=== PATIENT | female | born 1985 | race Caucasian/White ===

== ENCOUNTER 2017-11-08 05:17 | Inpatient (IN) | payer OTHER ==
[~2017-11-08] VITALS: Ht 149.9 cm; Wt 73.9 kg
[2017-11-08 07:41] VITALS: BP 120/74
[2017-11-08] MEDS ORDERED: RINGERS SOLUTION,LACTATED 1,000 ML IV ONE (08:31)
[2017-11-08] MEDS ORDERED: METOCLOPRAMIDE HCL 5 MG/ML 2 ML VIAL IVP ONE (08:45)
[2017-11-08] MEDS ORDERED: CITRIC ACID/SODIUM CITRATE 30 ML SOLUTION UDCUP PO ONE (08:45)
[2017-11-08 09:04] LABS: BASOPHILS % (AUTO) 0.9 % (0.0-2.0); EOSINOPHILS % (AUTO) 0.4 % (1.0-6.0); HEMATOCRIT 39.3 % (36-46); HEMOGLOBIN 13.8 g/dL (12.0-16.0); LYMPHOCYTES # (AUTO) 1.9 K/uL (1.0-4.8); LYMPHOCYTES % (AUTO) 17.1 % (22.0-44.0); MEAN CORPUSCULAR HEMOGLOBIN 31.3 pg (26.0-34.0); MEAN CORPUSCULAR HGB CONC 35.1 G/dL (31.0-37.0); MEAN CORPUSCULAR VOLUME 89 fL (80-100); MONOCYTES # (AUTO) 0.8 K/uL (0.1-1.0); MONOCYTES % (AUTO) 7.2 % (2.0-9.0); NEUTROPHILS # (AUTO) 8.3 K/uL (1.8-7.7); NEUTROPHILS % (AUTO) 74.4 % (40.0-70.0); PLATELET COUNT (AUTO)-OB 189 K/uL (150-450); RED BLOOD CELL COUNT(AUTO) 4.41 MIL/uL (4.00-5.20); RED CELL DISTRIBUTION WIDTH 13.9 % (11.5-14.5)
[2017-11-08] MEDS ORDERED: MEPERIDINE-PF 25 MG/ML SYRINGE IVP PRN (10:15)
[2017-11-08] MEDS ORDERED: MORPHINE SULFATE 10 MG/ML SYRINGE IVP PRN ×2 (10:15)
[2017-11-08] MEDS ORDERED: ONDANSETRON HCL 4 MG/2 ML VIAL IVP PRN ×2 (10:15)
[2017-11-08] MEDS ORDERED: FentaNYL CITRATE-PF 100 MCG/2 ML VIAL IVP PRN ×2 (10:15)
[2017-11-08] MEDS ORDERED: NALOXONE HCL 0.4 MG/ML VIAL IVP PRN (10:15)
[2017-11-08] MEDS ORDERED: NALBUPHINE HCL 10 MG/ML VIAL IVP PRN ×3 (10:15)
[2017-11-08] MEDS ORDERED: ACETAMINOPHEN 1000 MG/ISO-OSM 100 ML IV ONE ×2 (10:15→10:54)
[2017-11-08] MEDS ORDERED: DiphenhydrAMINE HCL 50 MG/ML VIAL IVP PRN ×2 (10:15)
[2017-11-08] MEDS ORDERED: ACETAMINOPHEN/CODEINE 300-30 MG TABLET PO PRN (10:45)
[2017-11-08] MEDS ORDERED: LANOLIN 7 GM OINTMENT TP PRN (10:45)
[2017-11-08] MEDS: DEXTROSE 5%-0.45% SODIUM CHL 1,000 ML IV SCH ×2 (11:43→22:42)
[2017-11-08] MEDS ORDERED: MORPHINE SULFATE/PF 0.5 MG/ML 10 ML AMP IVP ONE (12:00)
[2017-11-08] MEDS ORDERED: FentaNYL CITRATE-PF 100 MCG/2 ML VIAL IVP ONE (12:00)
[2017-11-08] MEDS ORDERED: OXYTOCIN 10 UNITS/ML VIAL IM ONE (12:00)
[2017-11-08] MEDS ORDERED: OXYGEN THERAPY IH SCH ×2 (20:00)
[2017-11-09] MEDS: ACETAMINOPHEN 1000 MG/ISO-OSM 100 ML IV SCH ×2 (03:00→04:33)
[2017-11-09] MEDS: DEXTROSE 5%-0.45% SODIUM CHL 1,000 ML IV SCH (04:31)
[2017-11-09] MEDS: IBUPROFEN 800 MG TABLET PO SCH ×4 (04:43→21:42)
[2017-11-09] MEDS: MAGNESIUM HYDROXIDE SUSPENSION 30 ML UDCUP PO SCH ×2 (09:07→21:42)
[2017-11-09] MEDS: ACETAMINOPHEN/CODEINE 300-30 MG TABLET PO PRN (18:48)
[2017-11-10] MEDS: IBUPROFEN 800 MG TABLET PO SCH ×4 (03:50→22:00)
[2017-11-10] MEDS: MAGNESIUM HYDROXIDE SUSPENSION 30 ML UDCUP PO SCH ×2 (08:57→21:00)
[2017-11-11] MEDS: ACETAMINOPHEN/CODEINE 300-30 MG TABLET PO PRN (08:13)
[2017-11-11] MEDS ORDERED: IBUP-2071 PO (09:22)
== END 2017-11-11 11:25 | disposition home or self-care (01) | DRG 766 ==
LOC: 4S 05:17 → OBSVTOIN 05:17 → 4S 05:29 → UNDOADMOB 05:29 → 4S 13:00
PROVIDERS: ADMIT Obstetrics & Gynecology; ATTEND Obstetrics & Gynecology
PROC: 10D00Z1 Extraction of Products of Conception, Low, Open Approach (ICD-10-PCS; principal; 2017-11-08)
DX: O34.211 Maternal care for low transverse scar from previous cesarean delivery (principal); O69.81X0 Labor and delivery complicated by cord around neck, without compression, not applicable or unspecified; O76 Abnormality in fetal heart rate and rhythm complicating labor and delivery; Z37.0 Single live birth; Z3A.38 38 weeks gestation of pregnancy
CPT/HCPCS: 86850; 86900; 86901; 87081; J0131; J0690; J2274; J2590; J2765; J3010; J7120